=== PATIENT | female | born 1990 | race Caucasian/White ===

== ENCOUNTER 2017-01-16 06:47 | Inpatient (IN) | payer BC, MEDICAID ==
[2017-01-16] MEDS ORDERED: Sodium Chloride 0.9% 10 ML Syringe FLUSH PRN (07:40)
[2017-01-16] MEDS ORDERED: Diphtheria,Pertussis(Acell),Tetanus Vaccine 0.5 ML SDV IM ONE (08:00)
[2017-01-16] MEDS ORDERED: Oxytocin/Lactated Ringers 10 UNIT/1,000 ML BAG IV SCH (08:00)
[2017-01-16] MEDS: Lactated Ringers 1,000 ML IV SCH ×3 (08:16→14:23)
--- NOTE | 2017-01-16 09:06 | PCM.SN ---
- Free Text/Narrative Note: At 0857 hrs. amniotomy performed clear fluid cervix 3 cm 80% effaced soft posterior vertex -1 category 1 heart rate
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
[2017-01-16] MEDS ORDERED: Nalbuphine 20 MG/1 ML Amp IVPUSH PRN (11:14)
[2017-01-16] MEDS ORDERED: Nalbuphine 20 MG/1 ML Amp ONE (11:14)
--- NOTE | 2017-01-16 12:08 | PCM.SN ---
- Free Text/Narrative Note: Cervix is 4-5 cm dilated, 100% effaced, soft, mid position. Vertex occiput transverse at 0 station category 1 heart rate.
[2017-01-16] MEDS ORDERED: diphenhydrAMINE 50 MG/ML SDV IVPUSH PRN (13:40)
[2017-01-16] MEDS ORDERED: fentaNYL 100 MCG/2 ML SDV EPIDUR PRN (13:40)
[2017-01-16] MEDS ORDERED: ePHEDrine 50 MG/ML SDV IVPUSH PRN (13:40)
[2017-01-16] MEDS ORDERED: Bupivacaine/fentaNYL/NS 100 ML Bag EPIDUR SCH (13:45)
--- NOTE | 2017-01-16 13:45 | PCM.PREANE ---
Preanesthetic Assessment - Procedure Proposed Procedure: ZEYAD - Anesthesia/Transfusion/Family Hx Anesthesia History: Prior Anesthesia Without Reaction Transfusion History: No Prior Transfusion(s) Intubation History: Unknown - Review of Systems General: No Symptoms Pulmonary: Other (Asthma; patient states that she has not used the inhaler for a year) Cardiovascular: No Symptoms Gastrointestinal: Other (GERD) Neurological: No Symptoms Other: Reports: None - Physical Assessment NPO Status Date: 01/16/17 NPO Status Time: 13:00 Respiratory Rate: 17 Vital Signs: Last Vital Signs Temp 36.4 C 01/16/17 07:41 Pulse 76 01/16/17 07:41 Resp 17 01/16/17 07:41 BP 127/89 01/16/17 07:41 Pulse Ox Height: 1.6 m Weight: 72.076 kg ASA Class: 2 Mental Status: Alert & Oriented x3 Airway Class: Mallampati = 1 Dentition: Reports: Normal Dentition Thyro-Mental Finger Breadths: 3 Mouth Opening Finger Breadths: 3 ROM/Head Extension: Full Lungs: Clear to Auscultation, Normal Respiratory Effort Cardiovascular: Regular Rate, Regular Rhythm - Lab Values: Laboratory Last Values WBC 7.51 K/mm3 (3.98-10.04) 01/16/17 08:10 RBC 3.90 M/mm3 (3.98-5.22) L 01/16/17 08:10 Hgb 11.6 gm/L (11.2-15.7) 01/16/17 08:10 Hct 34.8 % (34.1-44.9) 01/16/17 08:10 MCV 89.2 fl (79.4-94.8) 01/16/17 08:10 MCH 29.7 pg (25.6-32.2) 01/16/17 08:10 MCHC 33.3 g/dl (32.2-35.5) 01/16/17 08:10 RDW Std Deviation 40.9 fL (36.4-46.3) 01/16/17 08:10 Plt Count 174 K/mm3 (182-369) L 01/16/17 08:10 MPV 10.7 fl (9.4-12.3) 01/16/17 08:10 Neut % (Auto) 62.6 % (34.0-71.1) 01/16/17 08:10 Lymph % (Auto) 26.0 % (19.3-51.7) 01/16/17 08:10 [place] % (Auto) 10.0 % (4.7-12.5) 01/16/17 08:10 Eos % (Auto) 0.8 (0.7-5.8) 01/16/17 08:10 Baso % (Auto) 0.3 % (0.1-1.2) 01/16/17 08:10 Neut # (Auto) 4.71 K/mm3 (1.56-6.13) 01/16/17 08:10 Lymph # (Auto) 1.95 K/mm3 (1.18-3.74) 01/16/17 08:10 [place] # (Auto) 0.75 K/mm3 (0.24-0.36) H 01/16/17 08:10 Eos # (Auto) 0.06 K/mm3 (0.04-0.36) 01/16/17 08:10 Baso # (Auto) 0.02 K/mm3 (0.01-0.08) 01/16/17 08:10 Blood Type B POSITIVE 01/16/17 08:10 Gel Antibody Screen Negative 01/16/17 08:10 - Allergies Allergies/Adverse Reactions: Allergies Allergy/AdvReac Type Severity Reaction Status Date / Time amoxicillin Allergy Hives Verified 01/16/17 07:26 latex Allergy Hives Verified 01/16/17 07:26 - Anesthesia Plan Pre-Op Medication Ordered: None - Acknowledgements Anesthesia Type Planned: Epidural Pt an Appropriate Candidate for the Planned Anesthesia: Yes Alternatives and Risks of Anesthesia Discussed w Pt/Guardian: Yes Pt/Guardian Understands and Agrees with Anesthesia Plan: Yes PreAnesthesia Questionnaire HEENT History: Reports: Allergic Rhinitis Respiratory History: Reports: Asthma Neurological History: Reports: Migraines Psychiatric History: Reports: Anxiety - Past Surgical History HEENT Surgical History: Reports: Oral Surgery - SUBSTANCE USE Smoking Status *Q: Former Smoker Second Hand Smoke Exposure: Yes Recreational Drug Use History: No - HOME MEDS Home Medications: Home Meds Vits #93/Iron Fum/FA [ Formula Tablet] 01/16/17 [History] - CURRENT (IN HOUSE) MEDS Current Meds: Current Medications Lactated Ringer's (Ringers, Lactated) 1,000 mls @ 100 mls/hr IV ASDIRECTED SENG Last Admin: 01/16/17 08:16 Dose: 100 mls/hr Oxytocin/Lactated Ringer's (Pitocin In Lr 10 Units/1,000 Ml) 10 unit in 1,000 mls @ 12 mls/hr IV TITRATE SENG; 2 MUNITS/MIN PRN Reason: Protocol Last Titration: 01/16/17 12:19 Dose: 2 munits/min, 12 mls/hr Oxytocin 20 unit/ Lactated (Ringer's) 1,002 mls @ 500 mls/hr IV TITRATE SENG PRN Reason: Protocol Nalbuphine HCl (Nubain) 10 mg IVPUSH Q3H PRN PRN Reason: Pain Last Admin: 01/16/17 11:22 Dose: 10 mg Sodium Chloride (Saline Flush) 10 ml FLUSH ASDIRECTED PRN PRN Reason: Keep Vein Open Discontinued Medications Diphtheria/Tetanus/Acell Pertussis (Adacel) 0.5 ml IM .ONCE ONE Stop: 01/16/17 08:01 Nalbuphine HCl (Nubain) Confirm Administered Dose 20 mg .ROUTE .STK-MED ONE Stop: 01/16/17 11:15 Last Admin: 01/16/17 11:22 Dose: Not Given
--- NOTE | 2017-01-16 16:26 | PCM.SN ---
- Free Text/Narrative Note: Cervix 9 cm dilated, 100% effaced, soft, anterior. Vertex presentation +1 station. Patient had significant deceleration shortly before my examination and suspected related to vertex presentation descending into the pelvis somewhat more. As a precaution internal heart tone electrode applied. Discussed with patient and and family the deceleration if recurrent problems possible section but at present time anticipate vaginal delivery.
--- NOTE | 2017-01-16 19:12 | PCM.DEL ---
L & D Note - General Info Date of Service: 01/16/17 Mother's Due Date: 01/14/17 - Delivery Note Labor: Spontaneous, Augmented by ARM, Augmented by Oxytocin Delivery Outcome: Livebirth (Male liveborn Saturday01/16/17 at 1853 hrs. SANDRA) Delivery Method: Spontaneous Vaginal Delivery-Single Delivery Mode: Spontaneous Presentation: Left Occiput Anterior (SANDRA) Nuchal Cord: None Prep: Povidone-Iodine (Betadine Anesthesia Type: Epidural Amniotic Fluid Description: Clear Episiotomy Type: None Laceration: 1st Degree (Left and right labia labia minora medial surface at level of urethra, midline first-degree, laceration just to the right of midline (patient's right) none were bleeding none were sutured) Placenta: Intact, Spontaneous (At 1859 hrs. Saturday01/16/17 discarded central cord insertion inspected, Parul) Cord: 3 Vessels Estimated Blood Loss: 250 Resuscitation Needed: No [place]: Suctioned, Bulb Syringe, Stimulated, Warmed, [place] Used, Warmer Used Provider: Alex Israel Score 1 min: 9 Score 5 min: 9 - Patient Data Vitals - Most Recent: Last Vital Signs Temp 97.6 F 01/16/17 07:41 Pulse 76 01/16/17 07:41 Resp 17 01/16/17 13:45 BP 127/89 01/16/17 07:41 Pulse Ox Weight - Most Recent: 158 lb 14.4 oz I&O - Last 24 Hours: Intake & Output 01/16/17 01/16/17 01/16/17 06:59 14:59 22:59 Intake Total 2360 Balance 2360 Lab Results Last 24 Hours: Laboratory Results - last 24 hr 01/16/17 01/16/17 Range/Units 08:10 08:10 WBC 7.51 (3.98-10.04) K/mm3 RBC 3.90 L (3.98-5.22) M/mm3 Hgb 11.6 (11.2-15.7) gm/L Hct 34.8 (34.1-44.9) % MCV 89.2 (79.4-94.8) fl MCH 29.7 (25.6-32.2) pg MCHC 33.3 (32.2-35.5) g/dl RDW Std Deviation 40.9 (36.4-46.3) fL Plt Count 174 L (182-369) K/mm3 MPV 10.7 (9.4-12.3) fl Neut % (Auto) 62.6 (34.0-71.1) % Lymph % (Auto) 26.0 (19.3-51.7) % [place] % (Auto) 10.0 (4.7-12.5) % Eos % (Auto) 0.8 (0.7-5.8) Baso % (Auto) 0.3 (0.1-1.2) % Neut # (Auto) 4.71 (1.56-6.13) K/mm3 Lymph # (Auto) 1.95 (1.18-3.74) K/mm3 [place] # (Auto) 0.75 H (0.24-0.36) K/mm3 Eos # (Auto) 0.06 (0.04-0.36) K/mm3 Baso # (Auto) 0.02 (0.01-0.08) K/mm3 Blood Type B POSITIVE Gel Antibody Screen Negative Med Orders - Current: Current Medications Diphenhydramine HCl (Benadryl) 25 mg IVPUSH Q6H PRN PRN Reason: pruritis Ephedrine Sulfate (Ephedrine Sulfate) 5 mg IVPUSH ASDIRECTED PRN PRN Reason: Hypotension Fentanyl (Sublimaze) 100 mcg EPIDUR Q3H PRN PRN Reason: Pain Last Admin: 01/16/17 14:16 Dose: 100 mcg Fentanyl/Bupivacaine HCl (Fentanyl/Bupivacaine/Ns 2 Mcg-0.125% 100 Ml) 100 ml EPIDUR ASDIRECTED SENG Last Admin: 01/16/17 14:16 Dose: 100 ml Lactated Ringer's (Ringers, Lactated) 1,000 mls @ 100 mls/hr IV ASDIRECTED SENG Last Admin: 01/16/17 14:23 Dose: 100 mls/hr Oxytocin/Lactated Ringer's (Pitocin In Lr 10 Units/1,000 Ml) 10 unit in 1,000 mls @ 12 mls/hr IV TITRATE SENG; 2 MUNITS/MIN PRN Reason: Protocol Last Titration: 01/16/17 18:14 Dose: 2 munits/min, 12 mls/hr Oxytocin 20 unit/ Lactated (Ringer's) 1,002 mls @ 500 mls/hr IV TITRATE SENG PRN Reason: Protocol Last Admin: 01/16/17 18:56 Dose: 500 ml/hr, 500 mls/hr Nalbuphine HCl (Nubain) 10 mg IVPUSH Q3H PRN PRN Reason: Pain Last Admin: 01/16/17 11:22 Dose: 10 mg Sodium Chloride (Saline Flush) 10 ml FLUSH ASDIRECTED PRN PRN Reason: Keep Vein Open Discontinued Medications Diphtheria/Tetanus/Acell Pertussis (Adacel) 0.5 ml IM .ONCE ONE Stop: 01/16/17 08:01 Nalbuphine HCl (Nubain) Confirm Administered Dose 20 mg .ROUTE .STK-MED ONE Stop: 01/16/17 11:15 Last Admin: 01/16/17 11:22 Dose: Not Given - Problem List & Annotations (1) 40 weeks gestation of SNOMED Code(s): 27753592 Code(s): Z3A.40 - 40 WEEKS GESTATION OF Status: Acute Current Visit: Yes (2) First degree laceration of perineum during delivery, SNOMED Code(s): 854364273 Code(s): O70.0 - FIRST DEGREE PERINEAL LACERATION DURING DELIVERY Status: Acute Current Visit: Yes - Problem List Review Problem List Initiated/Reviewed/Updated: No - My Orders Last 24 Hours: My Active Orders 01/16/17 07:40 Sodium Chloride 0.9% [Saline Flush] 10 ml FLUSH ASDIRECTED PRN Resuscitation Status Routine 01/16/17 07:41 Patient Status [ADT] Routine Activity as Tolerated [RC] PFP Communication Order [RC] ASDIRECTED Heart Tones [RC] ASDIRECTED Notify Provider [RC] PFP Notify Provider [RC] PRN Peripheral IV Care [RC] . DIRECTED Vital Signs [RC] PER UNIT ROUTINE Electronic Heart Tones Ext w TOCO [WOMSER] Routine Electronic Heart Tones Internal [WOMSER] Per Unit Routine Peripheral IV Insertion Adult [OM.PC] Routine 01/16/17 07:45 Lactated Ringers [Ringers, Lactated] 1,000 ml IV ASDIRECTED 01/16/17 08:00 Vaccines to be Administered [RC] PER UNIT ROUTINE Oxytocin [Pitocin] 20 unit Lactated Ringers [Ringers, Lactated] 1,000 ml IV TITRATE Oxytocin/Lactated Ringers [Pitocin in LR 10 Units/1,000 ML] 10 unit in 1,000 ml IV TITRATE 01/16/17 11:14 Nalbuphine [Nubain] 10 mg IVPUSH Q3H PRN 01/16/17 14:53 Urinary Catheter Assessment [RC] ASDIRECTED 01/16/17 15:00 Insert [place] Catheter [Insert Urinary Catheter] [OM.PC] Q24H 01/16/17 Breakfast Clear Liquid Diet [DIET] - Plan Plan:: Patient seen and examined by me and discussed with student. Plan delivery.
[2017-01-16] MEDS ORDERED: Benzocaine/Menthol 20%-0.5% Spray 56 GM Canister TOP PRN (19:19)
[2017-01-16] MEDS ORDERED: Docusate Sodium 100 MG Cap PO PRN (19:19)
[2017-01-16] MEDS ORDERED: Witch Hazel Medicated Pads 100/Jar TOP PRN (19:19)
[2017-01-16] MEDS ORDERED: Lanolin 100% Cream 7 GM Tube TOP PRN (19:19)
[2017-01-16] MEDS ORDERED: Acetaminophen 325 MG Tab PO PRN (19:19)
[2017-01-16] MEDS: Ibuprofen 600 MG Tab PO PRN (22:15)
[2017-01-16] MEDS ORDERED: Bupivacaine 0.25% 10 ML SDV ONE (22:22)
[2017-01-17] MEDS: Labetalol 100 MG Tab PO SCH ×3 (05:43→21:56)
--- NOTE | 2017-01-17 08:24 | PCM48HPAN ---
Post Anesthesia Note - EVALUATION WITHIN 48HRS OF ANESTHETIC Vital Signs in Normal Range: Yes Patient Participated in Evaluation: Yes Respiratory Function Stable: Yes Airway Patent: Yes Cardiovascular Function Stable: Yes Hydration Status Stable: Yes Pain Control Satisfactory: Yes Nausea and Vomiting Control Satisfactory: Yes Mental Status Recovered: Yes - COMMENTS/OBSERVATIONS Free Text/Narrative:: Alexia has been up ambulating without difficulty. She denies headache. She denies numbness/tingling/weakness in lower extremities. She does not have any further questions at this time.
--- NOTE | 2017-01-17 08:37 | PCM.PNPP ---
- General Info Date of Service: 01/17/17 Functional Status: Reports: Pain Controlled - Review of Systems General: Reports: No Symptoms HEENT: Reports: No Symptoms Pulmonary: Reports: No Symptoms Cardiovascular: Reports: No Symptoms Gastrointestinal: Reports: No Symptoms Genitourinary: Reports: No Symptoms Musculoskeletal: Reports: No Symptoms Skin: Reports: No Symptoms Neurological: Reports: No Symptoms Psychiatric: Reports: No Symptoms - General Info Date of Service: 01/17/17 - Patient Data Vital Signs - Most Recent: Last Vital Signs Temp 98.1 F 01/17/17 04:01 Pulse 61 01/17/17 04:01 Resp 14 01/17/17 04:01 BP 120/76 01/17/17 04:01 Pulse Ox 98 01/17/17 04:01 Weight - Most Recent: 158 lb 14.4 oz I&O - Last 24 Hours: Intake & Output 01/16/17 01/17/17 01/17/17 22:59 06:59 14:59 Intake Total 1780 Balance 1780 Lab Results - Last 24 Hours: Laboratory Results - last 24 hr 01/16/17 01/17/17 Range/Units 08:10 05:30 WBC 11.96 H (3.98-10.04) K/mm3 RBC 3.43 L (3.98-5.22) M/mm3 Hgb 10.4 L (11.2-15.7) gm/L Hct 30.7 L (34.1-44.9) % MCV 89.5 (79.4-94.8) fl MCH 30.3 (25.6-32.2) pg MCHC 33.9 (32.2-35.5) g/dl RDW Std Deviation 40.7 (36.4-46.3) fL Plt Count 146 L (182-369) K/mm3 MPV 10.5 (9.4-12.3) fl Neut % (Auto) 75.4 H (34.0-71.1) % Lymph % (Auto) 14.4 L (19.3-51.7) % [place] % (Auto) 9.4 (4.7-12.5) % Eos % (Auto) 0.3 L (0.7-5.8) Baso % (Auto) 0.2 (0.1-1.2) % Neut # (Auto) 9.02 H (1.56-6.13) K/mm3 Lymph # (Auto) 1.72 (1.18-3.74) K/mm3 [place] # (Auto) 1.13 H (0.24-0.36) K/mm3 Eos # (Auto) 0.04 (0.04-0.36) K/mm3 Baso # (Auto) 0.02 (0.01-0.08) K/mm3 Blood Type B POSITIVE Gel Antibody Screen Negative Med Orders - Current: Current Medications Acetaminophen (Tylenol) 650 mg PO Q4H PRN PRN Reason: mild pain or fever Benzocaine/Menthol (Dermoplast Pain Relief [place]) 0 gm TOP ASDIRECTED PRN PRN Reason: Perineal Comfort Measure Last Admin: 01/16/17 20:24 Dose: 1 can Docusate Sodium (Colace) 100 mg PO BID PRN PRN Reason: Constipation Emollient Ointment (Lansinoh Hpa) 0 gm TOP ASDIRECTED PRN PRN Reason: Sore Nipples Last Admin: 01/16/17 20:25 Dose: 1 drop Ibuprofen (Motrin) 600 mg PO Q4H PRN PRN Reason: Mild pain or fever Last Admin: 01/16/17 22:15 Dose: 600 mg Labetalol HCl (Normodyne) 100 mg PO BID [facility] Last Admin: 01/17/17 05:43 Dose: Not Given Witmalissa Leola (Tucks) 1 pad TOP ASDIRECTED PRN PRN Reason: Hemorrhoid pain Last Admin: 01/16/17 20:24 Dose: 1 jar Discontinued Medications Diphenhydramine HCl (Benadryl) 25 mg IVPUSH Q6H PRN PRN Reason: pruritis Diphtheria/Tetanus/Acell Pertussis (Adacel) 0.5 ml IM .ONCE ONE Stop: 01/16/17 08:01 Ephedrine Sulfate (Ephedrine Sulfate) 5 mg IVPUSH ASDIRECTED PRN PRN Reason: Hypotension Fentanyl (Sublimaze) 100 mcg EPIDUR Q3H PRN PRN Reason: Pain Last Admin: 01/16/17 14:16 Dose: 100 mcg Fentanyl/Bupivacaine HCl (Fentanyl/Bupivacaine/Ns 2 Mcg-0.125% 100 Ml) 100 ml EPIDUR ASDIRECTED [facility] Last Admin: 01/16/17 14:16 Dose: 100 ml Lactated Ringer's (Ringers, Lactated) 1,000 mls @ 100 mls/hr IV ASDIRECTED SENG Last Admin: 01/16/17 14:23 Dose: 100 mls/hr Oxytocin/Lactated Ringer's (Pitocin In Lr 10 Units/1,000 Ml) 10 unit in 1,000 mls @ 12 mls/hr IV TITRATE SENG; 2 MUNITS/MIN PRN Reason: Protocol Last Titration: 01/16/17 18:14 Dose: 2 munits/min, 12 mls/hr Oxytocin 20 unit/ Lactated (Ringer's) 1,002 mls @ 500 mls/hr IV TITRATE SENG PRN Reason: Protocol Last Admin: 01/16/17 18:56 Dose: 500 ml/hr, 500 mls/hr Nalbuphine HCl (Nubain) 10 mg IVPUSH Q3H PRN PRN Reason: Pain Last Admin: 01/16/17 11:22 Dose: 10 mg Nalbuphine HCl (Nubain) Confirm Administered Dose 20 mg .ROUTE .STK-MED ONE Stop: 01/16/17 11:15 Last Admin: 01/16/17 11:22 Dose: Not Given Sodium Chloride (Saline Flush) 10 ml FLUSH ASDIRECTED PRN PRN Reason: Keep Vein Open - Interaction Disposition, : [place] in Room with Family Interaction: Holding Feeding: Continues to Breastfeed Support Person: Significant Other - Recovery Exam Fundal Tone: Firm Fundal Level: 1 Fingerbreadths Below Umbilicus Fundal Placement: Midline Lochia Amount: Small Lochia Color: Rubra/Red Episiotomy/Laceration: Approximated Bladder Status: Voiding - Exam General: Alert, Oriented HEENT: Mucous Membr. Moist/[place] Neck: Supple Lungs: Clear to Auscultation, Normal Respiratory Effort Cardiovascular: Regular Rate, Regular Rhythm GI/Abdominal Exam: Normal Bowel Sounds, Soft, Non-Tender, No Organomegaly, No Distention, No Abnormal Bruit, No Mass Extremities: Normal Inspection, Normal Range of Motion, Non-Tender, Normal Capillary Refill, Pedal Edema (Trace bilateral) Skin: Warm, Dry, Intact Wound/Incisions: Healing Well Neurological: No New Focal Deficit (Hypoactive patellar reflexes) Psy/Mental Status: Alert, Normal Affect, Normal Mood - Problem List & Annotations (1) 40 weeks gestation of SNOMED Code(s): 61066597 Code(s): Z3A.40 - 40 WEEKS GESTATION OF Status: Acute Current Visit: Yes (2) First degree laceration of perineum during delivery, SNOMED Code(s): 990792348 Code(s): O70.0 - FIRST DEGREE PERINEAL LACERATION DURING DELIVERY Status: Acute Current Visit: Yes - Problem List Review Problem List Initiated/Reviewed/Updated: No - My Orders Last 24 Hours: My Active Orders 01/16/17 07:40 Resuscitation Status Routine 01/16/17 07:41 Heart Tones [RC] ASDIRECTED Peripheral IV Care [RC] . DIRECTED 01/16/17 08:00 Vaccines to be Administered [RC] PER UNIT ROUTINE 01/16/17 19:19 Activity as Tolerated [RC] PER UNIT ROUTINE Vital Signs [RC] 04,12,20 Acetaminophen [Tylenol] 650 mg PO Q4H PRN Benzocaine/Menthol [Dermoplast Pain Relief [place]] See Dose Instructions TOP ASDIRECTED PRN Docusate Sodium [Colace] 100 mg PO BID PRN Ibuprofen [Motrin] 600 mg PO Q4H PRN Lanolin [Lansinoh HPA] See Dose Instructions TOP ASDIRECTED PRN Witch Leola [Tucks] 1 pad TOP ASDIRECTED PRN Assess Lochia [WOMSER] Per Unit Routine Assess Uterine Involution [WOMSER] Per Unit Routine Breast Pump [WOMSER] Per Unit Routine Heat Therapy [OM.PC] PRN Medication Administration Instruction [OM.PC] Routine Perineal Care [OM.PC] Per Unit Routine Peripheral IV Discontinue [OM.PC] Routine Sitz Bath [OM.PC] Per Unit Routine 01/16/17 21:00 Labetalol [Normodyne] 100 mg PO BID 01/16/17 Dinner Regular Diet [DIET] 01/17/17 19:19 Heat Therapy [OM.PC] PRN - Plan Plan:: Patient seen and examined by me and discussed with student. Plan delivery.
[2017-01-17] MEDS: Ibuprofen 600 MG Tab PO PRN (22:48)
[2017-01-18] MEDS: Labetalol 100 MG Tab PO SCH (08:24)
[2017-01-18 08:25] VITALS: BP 107/90
--- NOTE | 2017-01-18 09:45 | PCM.DCSUM1 ---
Discharge Summary - Hospital Course Free Text/Narrative:: [facility] LIVE L/D Delivery Note Patient Name: DAYA GOODWIN Date of : 89 Patient Status: Inpatient Attending Provider: Alex Israel Date: 01/16/17 19:08 Initialization Date: 01/16/17 19:08 L & D Note - General Info Date of Service: 01/16/17 Mother's Due Date: 01/14/17 - Delivery Note Labor: Spontaneous, Augmented by ARM, Augmented by Oxytocin Delivery Outcome: Livebirth (Male liveborn Saturday01/16/17 at 1853 hrs. SANDRA) Infant Delivery Method: Spontaneous Vaginal Delivery-Single Infant Delivery Mode: Spontaneous Presentation: Left Occiput Anterior (SANDRA) Nuchal Cord: None Prep: Povidone-Iodine (Betadine Anesthesia Type: Epidural Amniotic Fluid Description: Clear Episiotomy Type: None Laceration: 1st Degree (Left and right labia labia minora medial surface at level of urethra, midline first-degree, laceration just to the right of midline (patient's right) none were bleeding none were sutured) Placenta: Intact, Spontaneous (At 1859 hrs. Saturday01/16/17 discarded central cord insertion gema, Parul) Cord: 3 Vessels Estimated Blood Loss: 250 Resuscitation Needed: No [place]: Suctioned, Bulb Syringe, Stimulated, Warmed, Mcnabb Used, Warmer Used Provider: Alex Israel Score 1 min: 9 Score 5 min: 9 - Patient Data Vitals - Most Recent: Last Vital Signs Temp 97.6 F 01/16/17 07:41 Pulse 76 01/16/17 07:41 Resp 17 01/16/17 13:45 BP 127/89 01/16/17 07:41 Pulse Ox Weight - Most Recent: 158 lb 14.4 oz I&O - Last 24 Hours: Intake & Output 01/16/17 01/16/17 01/16/17 06:59 14:59 22:59 Intake Total 2360 Balance 2360 Lab Results Last 24 Hours: Laboratory Results - last 24 hr 01/16/17 01/16/17 Range/Units 08:10 08:10 WBC 7.51 (3.98-10.04) K/mm3 RBC 3.90 L (3.98-5.22) M/mm3 Hgb 11.6 (11.2-15.7) gm/L Hct 34.8 (34.1-44.9) % MCV 89.2 (79.4-94.8) fl MCH 29.7 (25.6-32.2) pg MCHC 33.3 (32.2-35.5) g/dl RDW Std Deviation 40.9 (36.4-46.3) fL Plt Count 174 L (182-369) K/mm3 MPV 10.7 (9.4-12.3) fl Neut % (Auto) 62.6 (34.0-71.1) % Lymph % (Auto) 26.0 (19.3-51.7) % [place] % (Auto) 10.0 (4.7-12.5) % Eos % (Auto) 0.8 (0.7-5.8) Baso % (Auto) 0.3 (0.1-1.2) % Neut # (Auto) 4.71 (1.56-6.13) K/mm3 Lymph # (Auto) 1.95 (1.18-3.74) K/mm3 [place] # (Auto) 0.75 H (0.24-0.36) K/mm3 Eos # (Auto) 0.06 (0.04-0.36) K/mm3 Baso # (Auto) 0.02 (0.01-0.08) K/mm3 Blood Type B POSITIVE Gel Antibody Screen Negative Med Orders - Current: Current Medications Diphenhydramine HCl (Benadryl) 25 mg IVPUSH Q6H PRN PRN Reason: pruritis Ephedrine Sulfate (Ephedrine Sulfate) 5 mg IVPUSH ASDIRECTED PRN PRN Reason: Hypotension Fentanyl (Sublimaze) 100 mcg EPIDUR Q3H PRN PRN Reason: Pain Last Admin: 01/16/17 14:16 Dose: 100 mcg Fentanyl/Bupivacaine HCl (Fentanyl/Bupivacaine/Ns 2 Mcg-0.125% 100 Ml) 100 ml EPIDUR ASDIRECTED SENG Last Admin: 01/16/17 14:16 Dose: 100 ml Lactated Ringer's (Ringers, Lactated) 1,000 mls @ 100 mls/hr IV ASDIRECTED SENG Last Admin: 01/16/17 14:23 Dose: 100 mls/hr Oxytocin/Lactated Ringer's (Pitocin In Lr 10 Units/1,000 Ml) 10 unit in 1,000 mls @ 12 mls/hr IV TITRATE SENG; 2 MUNITS/MIN PRN Reason: Protocol Last Titration: 01/16/17 18:14 Dose: 2 munits/min, 12 mls/hr Oxytocin 20 unit/ Lactated (Ringer's) 1,002 mls @ 500 mls/hr IV TITRATE SENG PRN Reason: Protocol Last Admin: 01/16/17 18:56 Dose: 500 ml/hr, 500 mls/hr Nalbuphine HCl (Nubain) 10 mg IVPUSH Q3H PRN PRN Reason: Pain Last Admin: 01/16/17 11:22 Dose: 10 mg Sodium Chloride (Saline Flush) 10 ml FLUSH ASDIRECTED PRN PRN Reason: Keep Vein Open Discontinued Medications Diphtheria/Tetanus/Acell Pertussis (Adacel) 0.5 ml IM .ONCE ONE Stop: 01/16/17 08:01 Nalbuphine HCl (Nubain) Confirm Administered Dose 20 mg .ROUTE .STK-MED ONE Stop: 01/16/17 11:15 Last Admin: 01/16/17 11:22 Dose: Not Given - Problem List & Annotations (1) 40 weeks gestation of SNOMED Code(s): 43214671 Code(s): Z3A.40 - 40 WEEKS GESTATION OF Status: Acute Current Visit: Yes (2) First degree laceration of perineum during delivery, SNOMED Code(s): 428176884 Code(s): O70.0 - FIRST DEGREE PERINEAL LACERATION DURING DELIVERY Status: Acute Current Visit: Yes - Problem List Review Problem List Initiated/Reviewed/Updated: No - My Orders Last 24 Hours: My Active Orders 01/16/17 07:40 Sodium Chloride 0.9% [Saline Flush] 10 ml FLUSH ASDIRECTED PRN Resuscitation Status Routine 01/16/17 07:41 Patient Status [ADT] Routine Activity as Tolerated [RC] PFP Communication Order [RC] ASDIRECTED Heart Tones [RC] ASDIRECTED Notify Provider [RC] PFP Notify Provider [RC] PRN Peripheral IV Care [RC] . DIRECTED Vital Signs [RC] PER UNIT ROUTINE Electronic Heart Tones Ext w TOCO [WOMSER] Routine Electronic Heart Tones Internal [WOMSER] Per Unit Routine Peripheral IV Insertion Adult [OM.PC] Routine 01/16/17 07:45 Lactated Ringers [Ringers, Lactated] 1,000 ml IV ASDIRECTED 01/16/17 08:00 Vaccines to be Administered [RC] PER UNIT ROUTINE Oxytocin [Pitocin] 20 unit Lactated Ringers [Ringers, Lactated] 1,000 ml IV TITRATE Oxytocin/Lactated Ringers [Pitocin in LR 10 Units/1,000 ML] 10 unit in 1,000 ml IV TITRATE 01/16/17 11:14 Nalbuphine [Nubain] 10 mg IVPUSH Q3H PRN 01/16/17 14:53 Urinary Catheter Assessment [RC] ASDIRECTED 01/16/17 15:00 Insert Alvarado Catheter [Insert Urinary Catheter] [OM.PC] Q24H 01/16/17 Breakfast Clear Liquid Diet [DIET] - Plan Plan:: Patient seen and examined by me and discussed with student. Plan delivery. HPI Initial Comments: [facility] LIVE L/D Delivery Note Patient Name: DAYA GOODWIN Date of : 89 Patient Status: Inpatient Attending Provider: Alex Israel Date: 01/16/17 19:08 Initialization Date: 01/16/17 19:08 L & D Note - General Info Date of Service: 01/16/17 Mother's Due Date: 01/14/17 - Delivery Note Labor: Spontaneous, Augmented by ARM, Augmented by Oxytocin Delivery Outcome: Livebirth (Male liveborn Saturday01/16/17 at 1853 hrs. SANDRA) Infant Delivery Method: Spontaneous Vaginal Delivery-Single Infant Delivery Mode: Spontaneous Presentation: Left Occiput Anterior (SANDRA) Nuchal Cord: None Prep: Povidone-Iodine (Betadine Anesthesia Type: Epidural Amniotic Fluid Description: Clear Episiotomy Type: None Laceration: 1st Degree (Left and right labia labia minora medial surface at level of urethra, midline first-degree, laceration just to the right of midline (patient's right) none were bleeding none were sutured) Placenta: Intact, Spontaneous (At 1859 hrs. Saturday01/16/17 discarded central cord insertion inspected, Parul) Cord: 3 Vessels Estimated Blood Loss: 250 Resuscitation Needed: No [place]: Suctioned, Bulb Syringe, Stimulated, Warmed, Mcnabb Used, Warmer Used Provider: Alex Israel Score 1 min: 9 Score 5 min: 9 - Patient Data Vitals - Most Recent: Last Vital Signs Temp 97.6 F 01/16/17 07:41 Pulse 76 01/16/17 07:41 Resp 17 01/16/17 13:45 BP 127/89 01/16/17 07:41 Pulse Ox Weight - Most Recent: 158 lb 14.4 oz I&O - Last 24 Hours: Intake & Output 01/16/17 01/16/17 01/16/17 06:59 14:59 22:59 Intake Total 2360 Balance 2360 Lab Results Last 24 Hours: Laboratory Results - last 24 hr 01/16/17 01/16/17 Range/Units 08:10 08:10 WBC 7.51 (3.98-10.04) K/mm3 RBC 3.90 L (3.98-5.22) M/mm3 Hgb 11.6 (11.2-15.7) gm/L Hct 34.8 (34.1-44.9) % MCV 89.2 (79.4-94.8) fl MCH 29.7 (25.6-32.2) pg MCHC 33.3 (32.2-35.5) g/dl RDW Std Deviation 40.9 (36.4-46.3) fL Plt Count 174 L (182-369) K/mm3 MPV 10.7 (9.4-12.3) fl Neut % (Auto) 62.6 (34.0-71.1) % Lymph % (Auto) 26.0 (19.3-51.7) % [place] % (Auto) 10.0 (4.7-12.5) % Eos % (Auto) 0.8 (0.7-5.8) Baso % (Auto) 0.3 (0.1-1.2) % Neut # (Auto) 4.71 (1.56-6.13) K/mm3 Lymph # (Auto) 1.95 (1.18-3.74) K/mm3 [place] # (Auto) 0.75 H (0.24-0.36) K/mm3 Eos # (Auto) 0.06 (0.04-0.36) K/mm3 Baso # (Auto) 0.02 (0.01-0.08) K/mm3 Blood Type B POSITIVE Gel Antibody Screen Negative Med Orders - Current: Current Medications Diphenhydramine HCl (Benadryl) 25 mg IVPUSH Q6H PRN PRN Reason: pruritis Ephedrine Sulfate (Ephedrine Sulfate) 5 mg IVPUSH ASDIRECTED PRN PRN Reason: Hypotension Fentanyl (Sublimaze) 100 mcg EPIDUR Q3H PRN PRN Reason: Pain Last Admin: 01/16/17 14:16 Dose: 100 mcg Fentanyl/Bupivacaine HCl (Fentanyl/Bupivacaine/Ns 2 Mcg-0.125% 100 Ml) 100 ml EPIDUR ASDIRECTED SENG Last Admin: 01/16/17 14:16 Dose: 100 ml Lactated Ringer's (Ringers, Lactated) 1,000 mls @ 100 mls/hr IV ASDIRECTED SENG Last Admin: 01/16/17 14:23 Dose: 100 mls/hr Oxytocin/Lactated Ringer's (Pitocin In Lr 10 Units/1,000 Ml) 10 unit in 1,000 mls @ 12 mls/hr IV TITRATE SENG; 2 MUNITS/MIN PRN Reason: Protocol Last Titration: 01/16/17 18:14 Dose: 2 munits/min, 12 mls/hr Oxytocin 20 unit/ Lactated (Ringer's) 1,002 mls @ 500 mls/hr IV TITRATE SENG PRN Reason: Protocol Last Admin: 01/16/17 18:56 Dose: 500 ml/hr, 500 mls/hr Nalbuphine HCl (Nubain) 10 mg IVPUSH Q3H PRN PRN Reason: Pain Last Admin: 01/16/17 11:22 Dose: 10 mg Sodium Chloride (Saline Flush) 10 ml FLUSH ASDIRECTED PRN PRN Reason: Keep Vein Open Discontinued Medications Diphtheria/Tetanus/Acell Pertussis (Adacel) 0.5 ml IM .ONCE ONE Stop: 01/16/17 08:01 Nalbuphine HCl (Nubain) Confirm Administered Dose 20 mg .ROUTE .STK-MED ONE Stop: 01/16/17 11:15 Last Admin: 01/16/17 11:22 Dose: Not Given - Problem List & Annotations (1) 40 weeks gestation of SNOMED Code(s): 57747695 Code(s): Z3A.40 - 40 WEEKS GESTATION OF Status: Acute Current Visit: Yes (2) First degree laceration of perineum during delivery, SNOMED Code(s): 148845756 Code(s): O70.0 - FIRST DEGREE PERINEAL LACERATION DURING DELIVERY Status: Acute Current Visit: Yes - Problem List Review Problem List Initiated/Reviewed/Updated: No - My Orders Last 24 Hours: My Active Orders 01/16/17 07:40 Sodium Chloride 0.9% [Saline Flush] 10 ml FLUSH ASDIRECTED PRN Resuscitation Status Routine 01/16/17 07:41 Patient Status [ADT] Routine Activity as Tolerated [RC] PFP Communication Order [RC] ASDIRECTED Heart Tones [RC] ASDIRECTED Notify Provider [RC] PFP Notify Provider [RC] PRN Peripheral IV Care [RC] . DIRECTED Vital Signs [RC] PER UNIT ROUTINE Electronic Heart Tones Ext w TOCO [WOMSER] Routine Electronic Heart Tones Internal [WOMSER] Per Unit Routine Peripheral IV Insertion Adult [OM.PC] Routine 01/16/17 07:45 Lactated Ringers [Ringers, Lactated] 1,000 ml IV ASDIRECTED 01/16/17 08:00 Vaccines to be Administered [RC] PER UNIT ROUTINE Oxytocin [Pitocin] 20 unit Lactated Ringers [Ringers, Lactated] 1,000 ml IV TITRATE Oxytocin/Lactated Ringers [Pitocin in LR 10 Units/1,000 ML] 10 unit in 1,000 ml IV TITRATE 01/16/17 11:14 Nalbuphine [Nubain] 10 mg IVPUSH Q3H PRN 01/16/17 14:53 Urinary Catheter Assessment [RC] ASDIRECTED 01/16/17 15:00 Insert Alvarado Catheter [Insert Urinary Catheter] [OM.PC] Q24H 01/16/17 Breakfast Clear Liquid Diet [DIET] - Plan Plan:: Patient seen and examined by me and discussed with student. Plan delivery. Brief History: [facility] LIVE . L/D Delivery Note. Patient Name: DAYA GOODWIN Record Number: [id number]. Date of : Patient Status: Inpatient. Attending Provider: Alex Israel Number: [id number]. Date: 01/16/17 19:08Initialization Date: 01/16/17 19:08. L & D Note. - General Info. Date of Service: 01/16/17. Mother's Due Date: 01/14/17. - Delivery Note. Labor: Spontaneous, Augmented by ARM, Augmented by Oxytocin. Delivery Outcome: Livebirth (Male liveborn Saturday01/16/17 at 1853 hrs. SANDRA). Delivery Method: Spontaneous Vaginal Delivery-Single. Infant Delivery Mode: Spontaneous. Presentation: Left Occiput Anterior ( SANDRA). Nuchal Cord: None. Prep: Povidone-Iodine (Betadine. Anesthesia Type: Epidural. Amniotic Fluid Description: Clear. Episiotomy Type: None. Laceration: 1st Degree (Left and right labia labia minora medial surface at level of urethra, midline first-degree, laceration just to the right of midline (patient's right) none were bleeding none were sutured). Placenta: Intact, Spontaneous (At 1859 hrs. Saturday01/16/17 discarded central cord insertion inspected, Parul). Cord: 3 Vessels. Estimated Blood Loss: 250. Resuscitation Needed: No. : Suctioned, Bulb Syringe, Stimulated, Warmed , Mcnabb Used, Warmer Used. Provider: Alex Israel. Score 1 min: 9. Score 5 min: 9. - Patient Data. Vitals - Most Recent: Last Vital Signs. Temp 97.6 F 01/16/17 07:41. Pulse 76 01/16/17 07:41. Resp 01/16/17 13:45. BP 127/89 01/16/17 07:41. Pulse Ox. Weight - Most Recent: 158 lb 14.4 oz. I&O - Last 24 Hours: Intake & Output. 01/16/1709/27/ . 06:5914:5922:59. Intake [id number]. [id number]. Lab Results Last 24 Hours: Laboratory Results - last 24 hr. 01/16/1709/Range/Units. 08:1008:10. WBC 7.51 (3.98-10.04) K/mm3. RBC 3.90 L (3.98-5.22) M/mm3. Hgb 11.6 (11.2-15.7) gm/L. Hct 34.8 (34.1-44.9) %. MCV 89.2 (79.4-94.8) fl. MCH 29.7 (25.6-32.2) pg. MCHC 33.3 (32.2-35.5) g/dl. RDW Std Deviation 40.9 (36.4-46.3) fL. Plt Count 174 L (182-369) K/mm3. MPV 10.7 (9.4-12.3) fl. Neut % (Auto) 62.6 (34.0-71.1) %. Lymph % (Auto) 26.0 (19.3-51.7) %. [place] % (Auto) 10.0 (4.7-12.5) %. Eos % (Auto) 0.8 (0.7-5.8). Baso % (Auto) 0.3 (0.1- 1.2) %. Neut # (Auto) 4.71 (1.56-6.13) K/mm3. Lymph # (Auto) 1.95 (1.18-3.74 ) K/mm3. [place] # (Auto) 0.75 H (0.24-0.36) K/mm3. Eos # (Auto) 0.06 (0.04- 0.36) K/mm3. Baso # (Auto) 0.02 (0.01-0.08) K/mm3. Blood Type B POSITIVE. Gel Antibody Screen Negative. Med Orders - Current: Current Medications. Diphenhydramine HCl (Benadryl) 25 mg IVPUSH Q6H PRN. PRN Reason: pruritis. Ephedrine Sulfate (Ephedrine Sulfate) 5 mg IVPUSH ASDIRECTED PRN. PRN Reason: Hypotension. Fentanyl (Sublimaze) 100 mcg EPIDUR Q3H PRN. PRN Reason: Pain. Last Admin: 01/16/17 14:16 Dose: 100 mcg. Fentanyl/Bupivacaine HCl (Fentanyl/ Bupivacaine/Ns 2 Mcg-0.125% 100 Ml) 100 ml EPIDUR ASDIRECTED SENG. Last Admin: 01/16/17 14:16 Dose: 100 ml. Lactated Ringer's (Ringers, Lactated) 1,000 mls @ 100 mls/hr IV ASDIRECTED SENG. Last Admin: 01/16/17 14:23 Dose: 100 mls/hr. Oxytocin/Lactated Ringer's (Pitocin In Lr 10 Units/1,000 Ml) 10 unit in 1,000 mls @ 12 mls/hr IV TITRATE SENG; 2 MUNITS/MIN. PRN Reason: Protocol. Last Titration: 01/16/17 18:14 Dose: 2 munits/min, 12 mls/hr. Oxytocin 20 unit/ Lactated (Ringer's) 1,002 mls @ 500 mls/hr IV TITRATE SENG. PRN Reason: Protocol. Last Admin: 01/16/17 18:56 Dose: 500 ml/hr, 500 mls/hr. Nalbuphine HCl (Nubain) 10 mg IVPUSH Q3H PRN. PRN Reason: Pain. Last Admin: 01/16/17 11: 22 Dose: 10 mg. Sodium Chloride (Saline Flush) 10 ml FLUSH ASDIRECTED PRN. PRN Reason: Keep Vein Open. Discontinued Medications. Diphtheria/Tetanus/ Acell Pertussis (Adacel) 0.5 ml IM .ONCE ONE. Stop: 01/16/17 08:01. Nalbuphine HCl (Nubain) Confirm Administered Dose 20 mg .ROUTE .STK-MED ONE. Stop: 01/16/17 11:15. Last Admin: 01/16/17 11:22 Dose: Not Given. - Problem List & Annotations. (1) 40 weeks gestation of . SNOMED Code(s): 94678762. Code(s): Z3A.40 - 40 WEEKS GESTATION OF Status: Acute Current Visit: Yes. (2) First degree laceration of perineum during delivery, . SNOMED Code(s): 763502887. Code(s): O70.0 - FIRST DEGREE PERINEAL LACERATION DURING DELIVERY Status: Acute Current Visit: Yes. - Problem List Review. Problem List Initiated/Reviewed/Updated: No. - My Orders. Last 24 Hours: My Active Orders. 01/16/17 07:40. Sodium Chloride 0.9% [Saline Flush] 10 ml FLUSH ASDIRECTED PRN. Resuscitation Status Routine. 01/16/17 07 :41. Patient Status [ADT] Routine. Activity as Tolerated [RC] PFP. Communication Order [RC] ASDIRECTED. Heart Tones [RC] ASDIRECTED. Notify Provider [RC] PFP. Notify Provider [RC] PRN. Peripheral IV Care [RC] . DIRECTED. Vital Signs [RC] PER UNIT ROUTINE. Electronic Heart Tones Ext w TOCO [WOMSER] Routine. Electronic Heart Tones Internal [WOMSER] Per Unit Routine. Peripheral IV Insertion Adult [OM.PC] Routine. 01/16/17 07: 45. Lactated Ringers [Ringers, Lactated] 1,000 ml IV ASDIRECTED. 01/16/17 08: 00. Vaccines to be Administered [RC] PER UNIT ROUTINE. Oxytocin [Pitocin] 20 unit Lactated Ringers [Ringers, Lactated] 1,000 ml IV TITRATE. Oxytocin/ Lactated Ringers [Pitocin in LR 10 Units/1,000 ML] 10 unit in 1,000 ml IV TITRATE. 01/16/17 11:14. Nalbuphine [Nubain] 10 mg IVPUSH Q3H PRN. 14:53. Urinary Catheter Assessment [RC] ASDIRECTED. 01/16/17 15:00. Insert Alvarado Catheter [Insert Urinary Catheter] [OM.PC] Q24H. 01/16/17 Breakfast. Clear Liquid Diet [DIET]. - Plan. Plan:: Patient seen and examined by me and discussed with student. Plan delivery. - Discharge Data Discharge Date: 01/18/17 Discharge Disposition: Home, Self-Care 01 Condition: Good - Discharge Diagnosis/Problem(s) (1) 40 weeks gestation of SNOMED Code(s): 52761737 ICD Code: Z3A.40 - 40 WEEKS GESTATION OF Status: Acute Current Visit: Yes (2) First degree laceration of perineum during delivery, SNOMED Code(s): 491381277 ICD Code: O70.0 - FIRST DEGREE PERINEAL LACERATION DURING DELIVERY Status: Acute Current Visit: Yes (3) Gestational hypertension affecting first SNOMED Code(s): 09783374 ICD Code: O13.9 - GESTATIONAL HTN W/O SIGNIFICANT PROTEINURIA, UNSP TRIMESTER Status: Acute Current Visit: Yes - Patient Summary/Data Complications: None Consults: None Hospital Course: Uneventful - Patient Instructions Diet: Regular Diet as Tolerated Driving: Do Not Drive (x48 hrs) Showering/Bathing: May Shower Notify Provider of: Fever, Increased Pain, Swelling and Redness, Drainage, Nausea and/or Vomiting - Discharge Plan Home Medications: Home Meds Vits #93/Iron Fum/FA [ Formula Tablet] 01/16/17 [History] Acetaminophen [Tylenol] 650 mg PO Q6H PRN tablet 01/18/17 [Rx] Benzocaine/Menthol [Dermoplast Pain Relief [place]] 1 spray TOP ASDIRECTED PRN canister 01/18/17 [Rx] Docusate Sodium [Colace] 100 mg PO BID PRN cap 01/18/17 [Rx] Ibuprofen [IJD: Ibuprofen] 600 mg PO Q6H PRN tablet 01/18/17 [Rx] Labetalol [Normodyne] 100 mg PO BID #60 tablet 01/18/17 [Rx] Lanolin [Lansinoh HPA] 1 applic TOP ASDIRECTED PRN tube 01/18/17 [Rx] Witch Leola [Tucks] 1 pad TOP ASDIRECTED PRN pad 01/18/17 [Rx] Patient Handouts: Smoking Hazards, Home Care Instructions for Mom, Smoking Cessation, Tips for Success - Patient Data Vitals - Most Recent: Last Vital Signs Temp 97.5 F 01/18/17 03:03 Pulse 77 01/18/17 08:24 Resp 16 01/18/17 03:03 BP 107/90 01/18/17 08:24 Pulse Ox 97 01/18/17 03:03 Weight - Most Recent: 158 lb 14.4 oz I&O - Last 24 hours: Intake & Output 01/17/17 01/18/17 01/18/17 22:59 06:59 14:59 Intake Total 180 Balance 180 Med Orders - Current: Current Medications Acetaminophen (Tylenol) 650 mg PO Q4H PRN PRN Reason: mild pain or fever Benzocaine/Menthol (Dermoplast Pain Relief [place]) 0 gm TOP ASDIRECTED PRN PRN Reason: Perineal Comfort Measure Last Admin: 01/16/17 20:24 Dose: 1 can Docusate Sodium (Colace) 100 mg PO BID PRN PRN Reason: Constipation Emollient Ointment (Lansinoh Hpa) 0 gm TOP ASDIRECTED PRN PRN Reason: Sore Nipples Last Admin: 01/16/17 20:25 Dose: 1 drop Ibuprofen (Motrin) 600 mg PO Q4H PRN PRN Reason: Mild pain or fever Last Admin: 01/17/17 22:48 Dose: 600 mg Labetalol HCl (Normodyne) 100 mg PO BID SENG Last Admin: 01/18/17 08:24 Dose: 100 mg Witch [place] (Tucks) 1 pad TOP ASDIRECTED PRN PRN Reason: Hemorrhoid pain Last Admin: 01/16/17 20:24 Dose: 1 jar Discontinued Medications Bupivacaine HCl (Sensorcaine-Mpf 0.25%) 10 ml .ROUTE .STK-MED ONE Stop: 01/16/17 22:23 Diphenhydramine HCl (Benadryl) 25 mg IVPUSH Q6H PRN PRN Reason: pruritis Diphtheria/Tetanus/Acell Pertussis (Adacel) 0.5 ml IM .ONCE ONE Stop: 01/16/17 08:01 Last Admin: 01/17/17 11:40 Dose: 0.5 ml Ephedrine Sulfate (Ephedrine Sulfate) 5 mg IVPUSH ASDIRECTED PRN PRN Reason: Hypotension Fentanyl (Sublimaze) 100 mcg EPIDUR Q3H PRN PRN Reason: Pain Last Admin: 01/16/17 14:16 Dose: 100 mcg Fentanyl/Bupivacaine HCl (Fentanyl/Bupivacaine/Ns 2 Mcg-0.125% 100 Ml) 100 ml EPIDUR ASDIRECTED SENG Last Admin: 01/16/17 14:16 Dose: 100 ml Lactated Ringer's (Ringers, Lactated) 1,000 mls @ 100 mls/hr IV ASDIRECTED SENG Last Admin: 01/16/17 14:23 Dose: 100 mls/hr Oxytocin/Lactated Ringer's (Pitocin In Lr 10 Units/1,000 Ml) 10 unit in 1,000 mls @ 12 mls/hr IV TITRATE SENG; 2 MUNITS/MIN PRN Reason: Protocol Last Titration: 01/16/17 18:14 Dose: 2 munits/min, 12 mls/hr Oxytocin 20 unit/ Lactated (Ringer's) 1,002 mls @ 500 mls/hr IV TITRATE SENG PRN Reason: Protocol Last Admin: 01/16/17 18:56 Dose: 500 ml/hr, 500 mls/hr Nalbuphine HCl (Nubain) 10 mg IVPUSH Q3H PRN PRN Reason: Pain Last Admin: 01/16/17 11:22 Dose: 10 mg Nalbuphine HCl (Nubain) Confirm Administered Dose 20 mg .ROUTE .STK-MED ONE Stop: 01/16/17 11:15 Last Admin: 01/16/17 11:22 Dose: Not Given Sodium Chloride (Saline Flush) 10 ml FLUSH ASDIRECTED PRN PRN Reason: Keep Vein Open *Q Meaningful Use (DIS) - VTE *Q VTE Criteria *Q: - Stroke *Q Stroke Criteria *Q: - AMI *Q AMI Criteria *Q:
== END 2017-01-18 10:02 | disposition home or self-care (01) | DRG 560 ==
LOC: JD.OB 06:47 → OBSVTOIN 18:53
PROVIDERS: ADMIT Obstetrics & Gynecology; ATTEND Obstetrics & Gynecology
PROC: 10E0XZZ Delivery of Products of Conception, External Approach (ICD-10-PCS; principal; 2017-01-16)
PROC: 10907ZC Drainage of Amniotic Fluid, Therapeutic from Products of Conception, Via Natural or Artificial Opening (ICD-10-PCS; 2017-01-16)
PROC: 00HU33Z Insertion of Infusion Device into Spinal Canal, Percutaneous Approach (ICD-10-PCS; 2017-01-16)
PROC: 3E0R3CZ (ICD-10-PCS; 2017-01-16)
PROC: 3E0234Z Introduction of Serum, Toxoid and Vaccine into Muscle, Percutaneous Approach (ICD-10-PCS; 2017-01-17)
DX: O70.0 First degree perineal laceration during delivery (principal); Z3A.40 40 weeks gestation of pregnancy; Z37.0 Single live birth; Z23 Encounter for immunization; Z88.1 Allergy status to other antibiotic agents; Z91.040 Latex allergy status
CPT/HCPCS: 01967; 36415; 51702; 59409; 85025; 86850; 86900; 86901; 90715; A9270-GY; J2300; J2590; J3010; J7120

== ENCOUNTER 2017-08-08 17:38 | Emergency (ER) | payer BC, MEDICAID ==
[2017-08-08 17:49] VITALS: BP 141/94
[2017-08-08] MEDS ORDERED: Ondansetron 4 MG/2 ML SDV IVPUSH ONE (18:00)
[2017-08-08] MEDS ORDERED: Sodium Chloride 0.9% 10 ML Syringe FLUSH PRN (18:00)
[2017-08-08] MEDS ORDERED: Sodium Chloride 0.9% 1,000 ML IV STA (18:00)
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
--- NOTE | 2017-08-08 19:28 | CT ---
Head CT Technique: Multiple axial sections through the brain were obtained. Intravenous contrast was not utilized. Comparison: No previous intracranial imaging. Findings: Ventricles along with basal cisterns and sulci over convexities are within normal limits for the patient's age. No abnormal parenchymal densities are seen. No evidence of intracranial hemorrhage. No midline shift or mass effect is seen. Visualized sinuses are clear. No acute calvarial abnormality is identified. Impression: 1. Nothing acute is seen on noncontrast head CT exam. Diagnostic code #1
== END 2017-08-08 19:39 | disposition home or self-care (01) ==
LOC: JD.ED 17:38
DX: R42 Dizziness and giddiness (principal); R00.2 Palpitations; I10 Essential (primary) hypertension; Z88.1 Allergy status to other antibiotic agents; Z91.040 Latex allergy status
CPT/HCPCS: 36415; 70450; 80053; 84443; 84484; 84703; 85025; 93005; 93225; 93226; 96361; 96374; 99285; A9270; J2405; J7040; J7050; 93010; 99284-25